=== PATIENT | male | born 1975 | race African-American/Black ===

== ENCOUNTER 2017-02-15 08:02 | Emergency (ER) | payer MEDICARE, MEDICAID ==
--- NOTE | 2017-02-15 09:03 | UC ---
Neck Pain HPI - HPI Summary HPI Summary: atraumatic right neck pain without any numbness or weakness. Hurts more to flex neck . 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 - History of Current Complaint Chief Complaint: UCGeneralIllness Stated Complaint: RIGHT SHOULDER/NECK PAIN Time Seen by Provider: 02/15/17 08:53 Hx Obtained From: Patient Onset/Duration Of Injury/Symptoms: Days Timing: Constant Onset/Duration: Gradual Onset Severity: Moderate Character: Aching, Stiff Aggravating Factors: Position Alleviating Factors: Position, Heat, Message Associated Signs & Symptoms: Positive: Negative - Allergies/Home Medications Allergies/Adverse Reactions: Allergies Allergy/AdvReac Type Severity Reaction Status Date / Time No Known Allergies Allergy Verified 02/15/17 08:59 PMH/Surg Hx/FS Hx/Imm Hx Endocrine History Of: Denies: Diabetes Cardiovascular History Of: Reports: Cardiac Disorders - enlarged heart, Hypertension Denies: Congestive Heart Failure GI/ History Of: Reports: Renal Disease - END STATGE KIDNEY FAILURE - Surgical History Surgical History: Yes Surgery Procedure, Year, and Place: kidney transplant 2007, 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 gets dialysis 3 x a week. - Family History Known Family History: Positive: Hypertension - Social History Occupation: Employed Full-time Alcohol Use: None Substance Use Type: None, Prescribed Smoking Status (MU): Never Smoked Tobacco - Immunization History Most Recent Influenza Vaccination: 07/2015 Most Recent Tetanus Shot: unkown Review Of Systems All Other Systems Reviewed And Are Negative: Yes Physical Exam Triage Information Reviewed: Yes Appearance: Well-Appearing, No Pain Distress, Well-Nourished Vital Signs Reviewed: Yes Eye Exam: Normal Eyes: Positive: Conjunctiva Clear. Negative: Conjunctiva Inflamed ENT Exam: Normal Neck exam: Normal Neck: Positive: Supple, Nontender, No Lymphadenopathy, Tenderness @ - right trapezius.. Negative: Nuchal Rigidity Respiratory Exam: Normal Cardiovascular Exam: Normal Abdominal Exam: Normal Abdomen Description: Positive: Nontender, No Organomegaly, Soft Musculoskeletal Exam: Other - neg spurling. there is no midline spine tenderness. Musculoskeletal: Positive: Strength Intact, ROM Intact, No Edema Neurological Exam: Normal Neurological: Positive: Alert, Muscle Tone Normal. Negative: Fatigued, Lethargic Psychological Exam: Normal Skin Exam: Normal Skin: Negative: rashes Neck Pain Course/Dx - Differential Dx/Diagnosis Provider Diagnoses: neck strain Discharge - Discharge Plan Condition: Stable Disposition: HOME Prescriptions: Cyclobenzaprine TAB* [Flexeril 10 MG TAB*] 10 mg PO BID PRN #20 tab PRN Reason: Pain Naproxen TAB* [Naprosyn 250 mg TAB*] 500 mg PO Q8H PRN #20 tab PRN Reason: Pain Patient Education Materials: Cervical Strain (ED), Neck Pain (ED) Referrals: Alyssa Boss MD [Primary Care Provider] - If Needed
[2017-02-15 09:10] VITALS: BP 129/95
== END 2017-02-15 09:13 | disposition home or self-care (01) ==
LOC: UCCORT 08:02
DX: S16.1XXA Strain of muscle, fascia and tendon at neck level, initial encounter (principal); X58.XXXA Exposure to other specified factors, initial encounter; Y93.9 Activity, unspecified; Y92.9 Unspecified place or not applicable; I11.9 Hypertensive heart disease without heart failure; N18.6 End stage renal disease; Z99.2 Dependence on renal dialysis
CPT/HCPCS: 99212; G0463

== ENCOUNTER 2017-04-10 11:00 | Emergency (ER) | payer MEDICARE, MEDICAID ==
[2017-04-10 11:14] VITALS: BP 136/101
[2017-04-10] MEDS ORDERED: Lidocaine 1% MPF* 2 ML VIAL INJ ONE (11:42)
--- NOTE | 2017-04-10 11:54 | UC ---
Ear Complaint HPI - HPI Summary HPI Summary: Right ear pain and discharge for the last few days. There is now some vertigo and expanding pain around the ear. no fever or chills. he is compliant with dailysis. - History of Current Complaint Chief Complaint: UCEar Stated Complaint: RIGHT EAR COMPLAINT Time Seen by Provider: 04/10/17 11:41 Hx Obtained From: Patient Onset/Duration: Gradual Onset Severity Initially: Mild Severity Currently: Moderate Alleviating Factors: Nothing Associated Signs/Symptoms: Positive: Discharge, Hearing Loss, Swelling @. Negative: Foreign Body Sensation, Trauma to Ear, URI Symptoms - Allergies/Home Medications Allergies/Adverse Reactions: Allergies Allergy/AdvReac Type Severity Reaction Status Date / Time No Known Allergies Allergy Verified 04/10/17 11:14 Home Medications: Home Medications Colchicine* [Colcrys*] 0.6 mg PO SEE INSTRUCTIONS 04/10/17 [History Confirmed ] PMH/Surg Hx/FS Hx/Imm Hx Previously Healthy: No - chronic renal failure. 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 - Family History Known Family History: Positive: Hypertension - Social History Alcohol Use: None Substance Use Type: None, Prescribed Smoking Status (MU): Never Smoked Tobacco - Immunization History Most Recent Influenza Vaccination: 07/2015 Most Recent Tetanus Shot: 01/2015 Review of Systems All Other Systems Reviewed And Are Negative: Yes Physical Exam Triage Information Reviewed: Yes Appearance: Well-Appearing, No Pain Distress, Well-Nourished Vital Signs: Initial Vital Signs Temp 98.0 F 04/10/17 11:10 Pulse 90 04/10/17 11:10 Resp 16 04/10/17 11:10 BP 136/101 04/10/17 11:10 Pulse Ox 97 04/10/17 11:10 Vital Signs Reviewed: Yes Eye Exam: Normal ENT: Positive: TMs normal - right TM no obvious perforation and no redness and effusion. the canal, tragus and pinna are tender. there is no induration or redness of the surrounding skin. Thee is bloody discharge from the canal. Neck exam: Normal Neck: Positive: Supple, Nontender, No Lymphadenopathy Respiratory Exam: Normal Cardiovascular Exam: Normal Abdominal Exam: Normal Neurological Exam: Normal Psychological Exam: Normal Skin Exam: Normal Ear Complaint Course/Dx - Course Course Of Treatment: This is oe with early expanding cellulitis. we will aggressivel manage with ciprodex and po antibiotics. He will return for any worsening. I have referred him to ENT. - Differential Dx/Diagnosis Provider Diagnoses: otitis externa. right ear cellulitis. Discharge - Discharge Plan Condition: Good Disposition: HOME Prescriptions: Ciproflox/Dexameth OTIC.SUSP* [Ciprodex OTIC.SUSP*] 2 drop .SEE ORDER BID #1 btl Dicloxacillin CAP* [Dynapen CAP*] 500 mg PO TID #30 cap Meclizine TAB* [Antivert 12.5 TAB*] 25 mg PO TID PRN #20 tab PRN Reason: Nausea Patient Education Materials: Otitis Externa (ED) Referrals: Kate Enriquez MD [Primary Care Provider] - Oleksandr Ariza MD [Medical Doctor] - Additional Instructions: follow up with ENT or with us here in two days. return to ED for any signs of worsening in the meantime.
[2017-04-10] MEDS ORDERED: Acetaminophen TAB* 325 MG PO ONE (12:00)
== END 2017-04-10 12:12 | disposition home or self-care (01) ==
LOC: UCCORT 11:00
DX: H60.91 Unspecified otitis externa, right ear (principal); H60.11 Cellulitis of right external ear; N18.9 Chronic kidney disease, unspecified; Z90.5 Acquired absence of kidney
CPT/HCPCS: 99212; A9270-GY; G0463

== ENCOUNTER 2017-07-08 09:15 | Emergency (ER) | payer MEDICARE, MEDICAID ==
[2017-07-08 09:35] VITALS: BP 148/92
--- NOTE | 2017-07-08 10:03 | UC ---
Throat Pain/Nasal Levar HPI - HPI Summary HPI Summary: sore throat x 6 day + cough, nasal congestion, fever and chills + diarrhea, blood in the stool yesterday , none today - History of Current Complaint Chief Complaint: UCRespiratory Stated Complaint: SORE THROAT COUGH BLOOD IN STOOL Time Seen by Provider: 07/08/17 09:31 Hx Obtained From: Patient Onset/Duration: Gradual Onset, Lasting Days - 6, Still Present Severity: Moderate Cough: Nonproductive Associated Signs & Symptoms: Positive: Nasal Discharge, Fever. Negative: Sinus Discomfort, Rash - Allergies/Home Medications Allergies/Adverse Reactions: Allergies Allergy/AdvReac Type Severity Reaction Status Date / Time No Known Allergies Allergy Verified 07/08/17 09:34 Home Medications: Home Medications Colchicine* [Colcrys*] 0.6 mg PO DAILY 07/08/17 [History Confirmed 07/08/17] Metoprolol Tartrate TAB* [Lopressor TAB*] 50 mg PO BID 07/08/17 [History Confirmed 07/08/17] predniSONE TAB* [Deltasone TAB*] 10 mg PO DAILY 07/08/17 [History Confirmed ] PMH/Surg Hx/FS Hx/Imm Hx Cardiovascular History: Hypertension GI/ History: Renal Disease - Surgical History Surgical History: Yes Surgery Procedure, Year, and Place: kidney transplant 2007, 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 - Family History Known Family History: Positive: Hypertension - Social History Alcohol Use: None Substance Use Type: None, Prescribed Smoking Status (MU): Never Smoked Tobacco - Immunization History Most Recent Influenza Vaccination: no Most Recent Tetanus Shot: 01/2015 Most Recent Pneumonia Vaccination: 06/2017 Review of Systems Constitutional: Fever, Chills, Fatigue Skin: Negative Eyes: Negative ENT: Negative Respiratory: Negative Cardiovascular: Negative Is Patient Immunocompromised?: Yes All Other Systems Reviewed And Are Negative: Yes Physical Exam Triage Information Reviewed: Yes Appearance: Well-Appearing, No Pain Distress, Well-Nourished Vital Signs: Initial Vital Signs Temp 99.3 F 07/08/17 09:29 Pulse 77 07/08/17 09:29 Resp 14 07/08/17 09:29 BP 148/92 07/08/17 09:29 Pulse Ox 100 07/08/17 09:29 Vital Signs Reviewed: Yes Eyes: Positive: Conjunctiva Clear ENT: Positive: Normal ENT inspection, Hearing grossly normal, Pharynx normal, Nasal drainage Neck: Positive: Supple, Nontender, No Lymphadenopathy Respiratory: Positive: Chest non-tender, Lungs clear, Normal breath sounds Cardiovascular: Positive: RRR, No Murmur, Pulses Normal Abdomen Description: Positive: Nontender, Soft. Negative: CVA Tenderness (R), CVA Tenderness (L), Distended, Guarding Bowel Sounds: Positive: Present Throat Pain/Nasal Course/Dx - Course Course Of Treatment: HTN: cont. with current meds. follow up with your pcp in one week - Differential Dx/Diagnosis Provider Diagnoses: viral illness. hypertension Discharge - Discharge Plan Condition: Stable Disposition: HOME Patient Education Materials: Viral Syndrome (ED) Referrals: Kate Enriquez MD [Primary Care Provider] - 5 Days Additional Instructions: normal vitals, normal exam cont. with rest, increase fluid, follow up with your pcp in 5 days if not better
== END 2017-07-08 10:14 | disposition home or self-care (01) ==
LOC: UCCORT 09:15
DX: B34.9 Viral infection, unspecified (principal); I10 Essential (primary) hypertension; N28.9 Disorder of kidney and ureter, unspecified; T86.11 Kidney transplant rejection
CPT/HCPCS: 99211; G0463

== ENCOUNTER 2017-08-14 10:37 | Emergency (ER) | payer MEDICARE, MEDICAID ==
[2017-08-14 11:34] VITALS: BP 138/97
[2017-08-14] MEDS ORDERED: Ondansetron ODT TAB* 4 MG PO ONE (11:42)
--- NOTE | 2017-08-14 11:44 | UC ---
Nausea/Vomiting/Diarrhea HPI - HPI Summary HPI Summary: 41M presents with n/v/d since last night. He denies any fever or abdominal pain. no chest pain beyond baseline for pericariditis. no SOB. no dysuria, hematuria, flank pain, urgency, frequency. is sick with similar. no recent antibiotics. did not eat anything different. PMH of acute renal failure, pericarditis. <Sue Wilkinson - Last Filed: 08/14/17 15:44> <Queenie Baig - Last Filed: 08/14/17 19:05> - History of Current Complaint Chief Complaint: UCGI Stated Complaint: STOMACH ACHE Time Seen by Provider: 08/14/17 11:37 - Allergies/Home Medications Allergies/Adverse Reactions: Allergies Allergy/AdvReac Type Severity Reaction Status Date / Time Adhesive Tape Allergy Unknown BLISTERS, Verified 08/14/17 11:22 RASH Home Medications: Home Medications Indomethacin CAP* [Indocin CAP*] 50 mg PO DAILY 08/14/17 [History Confirmed ] Pantoprazole Sodium 40 mg PO DAILY 08/14/17 [History Confirmed 08/14/17] PMH/Surg Hx/FS Hx/Imm Hx Cardiovascular History: Other Other Cardiovascular History: pericarditis GI/ History: Renal Disease - Surgical History Surgical History: Yes Surgery Procedure, Year, and Place: kidney transplant 2007, 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 - Family History Known Family History: Positive: Hypertension - Social History Alcohol Use: None Substance Use Type: None, Prescribed Smoking Status (MU): Never Smoked Tobacco - Immunization History Most Recent Influenza Vaccination: JUL 2017 Most Recent Tetanus Shot: 01/2015 Most Recent Pneumonia Vaccination: 06/2017 <Sue Wilkinson - Last Filed: 08/14/17 15:44> Review of Systems Constitutional: Negative Gastrointestinal: Vomiting, Diarrhea, Nausea All Other Systems Reviewed And Are Negative: Yes <Sue Wilkinson - Last Filed: 08/14/17 15:44> Physical Exam Triage Information Reviewed: Yes Appearance: Well-Appearing Vital Signs: Initial Vital Signs Temp 98 F 08/14/17 11:27 Pulse 83 08/14/17 11:27 Resp 18 08/14/17 11:27 BP 138/97 08/14/17 11:27 Pulse Ox 98 08/14/17 11:27 Vital Signs Reviewed: Yes Eyes: Positive: Conjunctiva Clear ENT: Positive: Normal ENT inspection, Pharynx normal, TMs normal Neck: Positive: Supple, Nontender, No Lymphadenopathy Respiratory: Positive: Lungs clear, Normal breath sounds Cardiovascular: Positive: RRR Abdomen Description: Positive: Nontender, Soft Bowel Sounds: Positive: Present Musculoskeletal Exam: Normal Neurological Exam: Normal Psychological Exam: Normal Skin Exam: Normal <Sue Wilkinson - Last Filed: 08/14/17 15:44> Vital Signs: Initial Vital Signs Temp 98 F 08/14/17 11:27 Pulse 83 08/14/17 11:27 Resp 18 08/14/17 11:27 BP 138/97 08/14/17 11:27 Pulse Ox 98 08/14/17 11:27 <Queenie Baig - Last Filed: 08/14/17 19:05> Naus/Vom/Diarrhea Course/Dx - Course Course Of Treatment: 41M presents with n/v/d since last night. He denies any fever or abdominal pain. no chest pain beyond baseline for pericariditis. no SOB. no dysuria, hematuria, flank pain, urgency, frequency. is sick with similar. no recent antibiotics. did not eat anything different. PMH of acute renal failure, pericarditis. on exam nontender abdomen. discussed that can only treat with zofran and if has any worsening symptoms will need to go to the ED. patient understands and agrees with plan. - Differential Dx/Diagnosis Differential Diagnoses - Male: Gastroenteritis (Viral), Gastroenteritis ( Bacterial), Vomiting, Diarrhea Provider Diagnoses: nausea, vomiting, diarrhea <Sue Wilkinson - Last Filed: 08/14/17 15:44> <Queenie Baig - Last Filed: 08/14/17 19:05> - Differential Dx/Diagnosis Condition At Discharge: Good Discharge <Sue Wilkinson - Last Filed: 08/14/17 15:44> <Queenie Baig - Last Filed: 08/14/17 19:05> - Discharge Plan Condition: Good Disposition: HOME Prescriptions: Ondansetron ODT TAB* [Zofran 4 MG Odt TAB*] 4 mg PO Q6H PRN #20 tab.odt PRN Reason: Nausea Patient Education Materials: Acute Nausea and Vomiting (ED) Forms: *Work Release Referrals: Kate Enriquez MD [Primary Care Provider] - Additional Instructions: Can take Zofran every 6 hours as needed for nausea Drink small amounts of fluid as tolerated When able to eat follow BRAT diet: Bananas, rice, applesauce, toast Take Tylenol for pain as needed every 6 hours Follow up with primary within 5 days about blood pressure Return to ED if develop fever that does not respond to Tylenol or ibuprofen, severe abdominal pain, or any new or worsening symptoms Attestation Statement User Type: Provider - I was available for consult. This patient was seen by the BRYSON. The patient was not presented to, seen by, or examined by me. -Digna <Queenie Baig - Last Filed: 08/14/17 19:05>
== END 2017-08-14 12:01 | disposition home or self-care (01) ==
LOC: UCCORT 10:37
DX: R11.2 Nausea with vomiting, unspecified (principal); R19.7 Diarrhea, unspecified; Z91.048 Other nonmedicinal substance allergy status
CPT/HCPCS: 99212; A9270-GY; G0463